=== PATIENT | male | born 1945 | race Caucasian/White ===

== ENCOUNTER 2018-09-23 04:00 | Emergency (ER) | payer BC ==
[2018-09-23] MEDS ORDERED: ALBUTEROL (0.5% CONCENTRATED) 2.5 MG/0.5 ML VIAL.NEB INH ONE (04:12)
[2018-09-23] MEDS ORDERED: IPRATROPIUM/ALBUTEROL (0.5MG/3MG) NEB INH ONE (04:14)
[2018-09-23 04:17] LABS: ABSOLUTE NEUTROPHIL COUNT 2.04; BASO % 0.4 % (0-6); EOS % 9.3 % (0-6); GRAN % 42.1 % (47-80); HEMATOCRIT 42.8 % (42.0-52.0); HEMOGLOBIN 14.5 gm/dl (14.0-18.0); LYMPH % 36.6 % (16-45); MEAN CELL VOLUME 81.8 fl (81-97); MEAN CORPUSCULAR HEMOGLOBIN 27.7 pg (27-33); MEAN CORPUSCULAR HGB CONC 33.9 g/dl (32-36); MEAN PLATELET VOLUME 10.1 fl (7.4-10.4); MONO % 11.6 % (0-9); PLATELET COUNT 160 K/uL (130-400); RED BLOOD COUNT 5.23 M/uL (4.40-5.70); RED CELL DISTRIBUTION WIDTH 14.3 % (11.5-14.5); WHITE BLOOD COUNT W/O DIFF 4.8 K/uL (4.2-12.2)
[2018-09-23 04:29] LABS: BLOOD UREA NITROGEN 20 mg/dL (8-23); CREATININE 1.2 mg/dL (0.7-1.2); EST GLOMERULAR FILTRATION RATE > 60 mL/min
[2018-09-23] MEDS ORDERED: METHYLPREDNISOLONE PF 125MG/VIAL IVP ONE (04:29)
[2018-09-23 04:30] LABS: TOTAL PROTEIN 6.7 g/dL (6.6-8.7)
[2018-09-23 04:32] LABS: GLUCOSE,RANDOM 166 mg/dL (74-109)
[2018-09-23 04:35] LABS: ALB/GLOB RATIO 1.4 (1.1-1.8); ALBUMIN 3.9 g/dL (4.0-5.0); ALKALINE PHOSPHATASE 87 U/L (40-129); ALT/SGPT 14 U/L (<41); AST/SGOT 16 U/L (10.0-50.0)
[2018-09-23] MEDS ORDERED: AZITHROMYCIN 500 MG TABLET PO ONE (05:00)
[2018-09-23] MEDS ORDERED: ALBUTEROL SULFATE (0.083%) 2.5 MG/3 ML NEB INH ONE (05:00)
--- NOTE | 2018-09-23 05:01 | Emergency Department Record ---
History of Present Illness - General Chief Complaint: Shortness of breath Stated Complaint: CHRIS Time Seen by Provider: 09/23/18 04:24 Source: Patient Mode of Arrival: Ambulatory Limitations: No limitations - History of Present Illness Initial Comments: pt has been sick for 4 days. tonight he woke up and felt like he couldnt breathe. he has never had anything like that befor. he has a productive white cough. no co, no fevers MD Complaint: Shortness of breath Onset/Timin -: Days(s) Consistency: Constant Worsens With: Nothing Context: Recent URI Associated Symptoms: Cough, Sputum production Treatments Prior to Arrival: Other Treatment Prior to Arrival Comment:: otc mucinex - Related Data Home Oxygen Therapy: No Home Medications Medication Instructions Recorded Confirmed Last Taken Atorvastatin Calcium 10 mg PO DAILY 09/23/18 09/23/18 Unknown Cyclobenzaprine HCl [Flexeril] 5 mg PO BID 09/23/18 09/23/18 Unknown Hydrocodone/Acetaminophen 1 tab PO DAILY 09/23/18 09/23/18 Unknown [Hydrocodone/Acetaminophen 10mg/325mg] Tamsulosin HCl [Flomax] 0.4 mg PO DAILY 09/23/18 09/23/18 Unknown Previous Rx's Medication Instructions Recorded Albuterol Sulfate [Ventolin Hfa] 1 - 2 puff IH .EVERY 4-6 HOURS PRN 09/23/18 #1 inhaler Azithromycin [Zithromax] 250 mg PO DAILY #4 tab 09/23/18 Prednisone [Prednisone 20Mg] 20 mg PO Q12HR #6 tab 09/23/18 Allergies Allergy/AdvReac Type Severity Reaction Status Date / Time No Known Drug Allergies Allergy Verified 09/23/18 04:06 Travel Screening - Travel/Exposure Within Last 30 Days Have you traveled within the last 30 days?: No - Travel/Exposure Within Last Year Have you traveled outside the [place] in the last year?: No - Additonal Travel Details Have you been exposed to anyone with a communicable illness?: No - Travel Symptoms Symptom Screening: None Review of Systems Reviewed: No additional complaints except as noted below Constitutional: Reports: As per HPI. Denies: Chills, Fever, Malaise, Night sweats, Weakness, Weight change Eyes: Reports: As per HPI. Denies: Eye discharge, Eye pain, Photophobia, Vision change ENT: Reports: As per HPI. Denies: Congestion, Dental pain, Ear pain, Epistaxis, Hearing loss, Throat pain Respiratory: Reports: As per HPI, Cough. Denies: Dyspnea, Hemoptysis, Stridor, Wheezes Cardiovascular: Reports: As per HPI. Denies: Arrhythmia, Chest pain, Dyspnea on exertion, Edema, Murmurs, Orthopnea, Palpitations, Paroxysmal nocturnal dyspnea, Rheumatic Fever, Syncope Endocrine: Reports: As per HPI. Denies: Fatigue, Heat or cold intolerance, Polydipsia, Polyuria Gastrointestinal: Reports: As per HPI. Denies: Abdominal pain, Constipation, Diarrhea, Hematemesis, Hematochezia, Melena, Nausea, Vomiting Genitourinary: Reports: As per HPI. Denies: Dysuria, Frequency, Hematuria, Incontinence, Retention, Testicular pain, Testicular mass, Urgency Musculoskeletal: Reports: As per HPI. Denies: Arthralgia, Back pain, Gout, Joint swelling, Myalgia, Neck pain Skin: Reports: As per HPI. Denies: Bruising, Change in color, Change in hair/nails, Lesions, Pruritus, Rash Neurological: Reports: As per HPI. Denies: Abnormal gait, Confusion, Headache, Numbness, Paresthesias, Seizure, Tingling, Tremors, Vertigo, Weakness Psychiatric: Reports: As per HPI. Denies: Anxiety, Auditory hallucinations, Depression, Homicidal thoughts, Suicidal thoughts, Visual hallucinations Hematological/Lymphatic: Reports: As per HPI. Denies: Anemia, Blood Clots, Easy bleeding, Easy bruising, Swollen glands Past Medical History - SOCIAL HISTORY Smoking Status: Former smoker Alcohol Use: None Drug Use: None - RESPIRATORY Hx Respiratory Disorders: No - CARDIOVASCULAR Hx Cardio Disorders: No - NEURO Hx Neuro Disorders: No - GI Hx GI Disorders: No - Hx Bladder Problem: Yes - ENDOCRINE Hx Endocrine Disorders: No - MUSCULOSKELETAL Hx Musculoskeletal Disorders: Yes Hx Back Injury: Yes - PSYCH Hx Psych Problems: No - HEMATOLOGY/ONCOLOGY Hx Hematology/Oncology Disorders: Yes Hx Cancer: Yes (non-hodkins lymphoma) Hx Chemotherapy: Yes Hx Radiation Therapy: Yes (5 years ago) Family Medical History Any Significant Family History?: No Physical Exam - General General Appearance: Alert, Oriented x3, Cooperative, No acute distress - Head Head exam: Normal inspection - Eye Eye exam: Normal appearance, PERRL, EOMI Pupils: Normal accommodation - ENT ENT exam: Normal exam, Mucous membranes moist, Normal external ear exam, Normal orophraynx, TM's normal bilaterally Ear exam: Normal external inspection. negative: External canal tenderness Nasal Exam: Normal inspection. negative: Discharge, Sinus tenderness Mouth exam: Normal external inspection, Tongue normal Teeth exam: Normal inspection. negative: Dental caries Throat exam: Normal inspection. negative: Tonsillar erythema, Tonsillar exudate - Neck Neck exam: Normal inspection, Full ROM. negative: Tenderness - Respiratory Respiratory exam: Respiratory distress, Wheezes - Cardiovascular Cardiovascular Exam: Regular rate, Normal rhythm, Normal heart sounds - GI/Abdominal GI/Abdominal exam: Soft, Normal bowel sounds. negative: Tenderness - Rectal Rectal exam: Deferred - exam: Deferred - Extremities Extremities exam: Normal inspection, Full ROM, Normal capillary refill. negative: Tenderness - Back Back exam: Reports: Normal inspection, Full ROM. Denies: Muscle spasm, Rash noted, Tenderness - Neurological Neurological exam: Alert, CN II-XII intact, Normal gait, Oriented X3 - Psychiatric Psychiatric exam: Normal affect, Normal mood - Skin Skin exam: Dry, Intact, Normal color, Warm Course Vital Signs 09/23/18 09/23/18 04:05 04:16 Temperature 97.7 F Pulse Rate 80 77 Respiratory 24 18 Rate Blood Pressure 164/86 Pulse Ox 97 96 - Reevaluation(s) Reevaluation #1: 09/23/18 05:05 pt feels much better Medical Decision Making - Lab Data Result diagrams: 09/23/18 04:13 09/23/18 04:13 Lab Results 09/23/18 09/23/18 09/23/18 Range/Units 04:13 04:13 04:29 WBC 4.8 (4.2-12.2) K/uL RBC 5.23 (4.40-5.70) M/uL Hgb 14.5 (14.0-18.0) gm/dl Hct 42.8 (42.0-52.0) % MCV 81.8 (81-97) fl MCH 27.7 (27-33) pg MCHC 33.9 (32-36) g/dl RDW 14.3 (11.5-14.5) % Plt Count 160 (130-400) K/uL MPV 10.1 (7.4-10.4) fl Gran % 42.1 L (47-80) % Lymphocytes % 36.6 (16-45) % Monocytes % 11.6 H (0-9) % Eosinophils % 9.3 H (0-6) % Basophils % 0.4 (0-6) % Absolute Neutrophils 2.04 Sodium 141 (136-145) mmol/L Potassium 4.3 (3.4-4.5) mmol/L Chloride 106 (98-107) mmol/L Carbon Dioxide 26.0 (22-29) mmol/L Anion Gap 9.0 (7-16) BUN 20 (8-23) mg/dL Creatinine 1.2 (0.7-1.2) mg/dL Estimated GFR > 60 mL/min Random Glucose 166 H (74-109) mg/dL Calcium 8.9 (8.8-10.2) mg/dL Total Bilirubin 0.30 (0.2-1.0) mg/dL AST 16 (10.0-50.0) U/L ALT 14 (<41) U/L Alkaline Phosphatase 87 (40-129) U/L NT-Pro-B Natriuret Pep 177.80 H Cancelled (<125) pg/mL Total Protein 6.7 (6.6-8.7) g/dL Albumin 3.9 L (4.0-5.0) g/dL Globulin 2.8 (1.4-4.8) gm/dL Albumin/Globulin Ratio 1.4 (1.1-1.8) Disposition Disposition: Discharge Clinical Impression: Pneumonia Qualifiers: Pneumonia type: due to unspecified organism Laterality: right Lung location: lower lobe of lung Qualified Code(s): J18.1 - Lobar pneumonia, unspecified organism Disposition: Home, Self-Care Condition: (1) Good Instructions: Pneumonia (ED) Additional Instructions: follow up with family doctor. return sooner if worse. Prescriptions: Prednisone [Prednisone 20Mg] 20 mg PO Q12HR #6 tab Albuterol Sulfate [Ventolin Hfa] 1 - 2 puff IH .EVERY 4-6 HOURS PRN #1 inhaler PRN Reason: Difficulty In Breathing Azithromycin [Zithromax] 250 mg PO DAILY #4 tab Quality - Quality Measures Quality Measures: N/A - Blood Pressure Screening Does Patient Have Any of the Following: No Blood Pressure Classification: Pre-Hypertensive BP Reading Systolic Measurement: 164 Diastolic Measurement: 86 Screening for High Blood Pressure: < First Hypertensive BP, F/U Documented > [G8950] First Hypertensive Follow-up Interventions: Follow-up with rescreen GT 1 day and LT 4 weeks.
--- NOTE | 2018-09-24 10:40 | RADIOLOGY REPORT ---
EXAM: CHEST, TWO VIEWS HISTORY: NONPRODUCTIVE COUGH AND SHORTNESS OF BREATH FOR TWO DAYS. TECHNIQUE: Upright PA and lateral views of the chest were obtained. Comparison: None. FINDINGS: The heart is not enlarged and the pulmonary vasculature is nondilated. Small calcified nodules are scattered within the lower lungs consistent with healed granulomatous disease. No lung consolidation, costophrenic angle blunting, or pneumothorax is seen. Old healed fractures of the lateral right fifth and sixth ribs suggested. There are mild degenerative end plate changes scattered throughout the visualized spine and shoulder girdles. IMPRESSION: NO RADIOGRAPHIC EVIDENCE OF ACUTE CARDIOPULMONARY DISEASE. SMALL CALCIFIED NODULES SCATTERED IN THE LOWER LUNGS CONSISTENT WITH HEALED GRANULOMATOUS DISEASE. JOB NUMBER: [id number] [facility]
== END 2018-09-23 05:23 | disposition home or self-care (01) ==
LOC: ER 04:00
DX: J18.1 Lobar pneumonia, unspecified organism (principal); R06.02 Shortness of breath; Z87.891 Personal history of nicotine dependence
CPT/HCPCS: 71046; 80053; 83880; 85025; 94640; 96374; 99284; J2930; J7613

== ENCOUNTER 2019-06-16 12:04 | Emergency (ER) | payer BC ==
--- NOTE | 2019-06-16 12:42 | Emergency Department Record ---
History of Present Illness - General Chief complaint: Male Urogenital Problem Stated complaint: unable to void Time Seen by Provider: 06/16/19 12:40 Source: Patient, RN notes reviewed Mode of Arrival: Ambulatory - History of Present Illness Initial comments: patient has brain tumors times three and he chronic right shoulder and upper thoracic right sided back pain and he says that is from laying on his side in the MRI machine about 4 weeks ago. 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 Patient is getting radiation to his head and he is now trying to recover from that and he came in here because of urinary retention. Zayas was placed and he had 1000 ml of urine in his bladder and that feels better and he now is complaining about his right upper thoracic back pain. Patient was getting radiation at [facility] last treatment to the brain 2 days ago. PMH pulmonary embolus and on lovenox twice a day and in our Ed he had a nose bleed right side controlled with pressure. Reports: Urinary retention - Related Data Sexually active: No Previous Rx's Medication Instructions Recorded Albuterol Sulfate [Ventolin Hfa] 1 - 2 puff IH .EVERY 4-6 HOURS PRN 09/23/18 #1 inhaler Azithromycin [Zithromax] 250 mg PO DAILY #4 tab 09/23/18 Prednisone [Prednisone 20Mg] 20 mg PO Q12HR #6 tab 09/23/18 Allergies Allergy/AdvReac Type Severity Reaction Status Date / Time No Known Drug Allergies Allergy Verified 09/23/18 04:06 Travel/Exposure Screening - Travel/Exposure Within Last 30 Days Have you traveled within the last 30 days?: No - Travel/Exposure Within Last Year Have you traveled outside the [place] in the last year?: No - Additonal Travel/Exposure Details Have you been exposed to anyone with a communicable illness?: No - Travel Symptoms Symptom Screening: None Review of Systems Reviewed: No additional complaints except as noted below Constitutional: Reports: As per HPI. Denies: Chills, Fever, Malaise, Night sweats, Weakness, Weight change Eyes: Reports: As per HPI. Denies: Eye discharge, Eye pain, Photophobia, Vision change ENT: Reports: As per HPI. Denies: Congestion, Dental pain, Ear pain, Epistaxis, Hearing loss, Throat pain Respiratory: Reports: As per HPI. Denies: Cough, Dyspnea, Hemoptysis, Stridor, Wheezes Cardiovascular: Reports: As per HPI. Denies: Arrhythmia, Chest pain, Dyspnea on exertion, Edema, Murmurs, Orthopnea, Palpitations, Paroxysmal nocturnal dyspnea, Rheumatic Fever, Syncope Endocrine: Reports: As per HPI. Denies: Fatigue, Heat or cold intolerance, Polydipsia, Polyuria Gastrointestinal: Reports: As per HPI. Denies: Abdominal pain, Constipation, Diarrhea, Hematemesis, Hematochezia, Melena, Nausea, Vomiting Genitourinary: Reports: As per HPI. Denies: Dysuria, Frequency, Hematuria, Incontinence, Retention, Testicular pain, Testicular mass, Urgency Musculoskeletal: Reports: As per HPI, Back pain (right thoracic pain). Denies: Arthralgia, Gout, Joint swelling, Myalgia, Neck pain Skin: Reports: As per HPI. Denies: Bruising, Change in color, Change in hair/nails, Lesions, Pruritus, Rash Neurological: Reports: As per HPI. Denies: Abnormal gait, Confusion, Headache, Numbness, Paresthesias, Seizure, Tingling, Tremors, Vertigo, Weakness Psychiatric: Reports: As per HPI. Denies: Anxiety, Auditory hallucinations, Depression, Homicidal thoughts, Suicidal thoughts, Visual hallucinations Hematological/Lymphatic: Reports: As per HPI. Denies: Anemia, Blood Clots, Easy bleeding, Easy bruising, Swollen glands Past Medical History - SOCIAL HISTORY Smoking Status: Former smoker - RESPIRATORY Hx Respiratory Disorders: No - CARDIOVASCULAR Hx Cardio Disorders: No - NEURO Hx Neuro Disorders: No - GI Hx GI Disorders: No - Hx Bladder Problem: Yes - ENDOCRINE Hx Endocrine Disorders: No - MUSCULOSKELETAL Hx Musculoskeletal Disorders: Yes Hx Back Injury: Yes - PSYCH Hx Psych Problems: No - HEMATOLOGY/ONCOLOGY Hx Hematology/Oncology Disorders: Yes Hx Cancer: Yes (non-hodkins lymphoma) Hx Chemotherapy: Yes Hx Radiation Therapy: Yes (5 years ago) Family Medical History Any Significant Family History?: No Physical Exam - General General Appearance: Alert, Oriented x3, Cooperative, Moderate distress - Head Head exam: Normal inspection - Eye Eye exam: Normal appearance, PERRL Pupils: Normal accommodation - ENT ENT exam: Normal exam, Mucous membranes moist, Normal external ear exam, Normal orophraynx, TM's normal bilaterally Ear exam: Normal external inspection. negative: External canal tenderness Nasal Exam: Normal inspection. negative: Discharge, Sinus tenderness Mouth exam: Normal external inspection, Tongue normal Teeth exam: Normal inspection. negative: Dental caries Throat exam: Normal inspection. negative: Tonsillar erythema, Tonsillar exudate - Neck Neck exam: Normal inspection, Full ROM. negative: Tenderness - Respiratory Respiratory exam: Normal lung sounds bilaterally. negative: Respiratory distress - Cardiovascular Cardiovascular Exam: Regular rate, Normal rhythm, Normal heart sounds - GI/Abdominal GI/Abdominal exam: Soft, Normal bowel sounds. negative: Tenderness - Rectal Rectal exam: Deferred - exam: Deferred - Extremities Extremities exam: Normal inspection, Full ROM, Normal capillary refill. negative: Tenderness - Back Back exam: Reports: Normal inspection, Full ROM. Denies: Muscle spasm, Rash noted, Tenderness - Neurological Neurological exam: Alert, Normal gait, Oriented X3, Reflexes normal - Psychiatric Psychiatric exam: Normal affect, Normal mood - Skin Skin exam: Dry, Intact, Normal color, Warm Course Vital Signs 06/16/19 12:35 Temperature 37.8 F L Pulse Rate 103 H Respiratory 20 Rate Blood Pressure 122/98 Pulse Ox 100 - Reevaluation(s) Reevaluation #1: discussed case with daughter and she informed me he also has a PE and on lovenox therapy. 06/16/19 16:58 Reevaluation #2: Discussed case with Dr Paiz and will transfer to [facility] For further care. 06/16/19 16:59 Reevaluation #3: Daughter informed me he is living in a pole barn without running water because the pipes are frozen and she is trying to get him into a jail. Daughter Lianne Matias 06/16/19 17:01 Medical Decision Making - Data Complexity MDM Data: Labs Ordered and/or Reviewed (wbc 27,800, urine RBC tntc, no nat and WBC 3-5), X-Ray Ordered and/or Reviewed (CT scan multiple tumors in lungs, liver and kidneys) - Lab Data Result diagrams: 06/16/19 12:55 06/16/19 12:55 Disposition Clinical Impression: Urinary retention, Living accommodation issues Elevated white blood cell count Qualifiers: Leukocytosis type: unspecified Qualified Code(s): D72.829 - Elevated white blo od cell count, unspecified Disposition: Acute Care Hospital Transfer Condition: (2) Stable Forms: Patient Portal Access Time of Disposition: 17:00 Quality - Quality Measures Quality Measures: N/A - Blood Pressure Screening Does Patient Have Any of the Following: No Blood Pressure Classification: Hypertensive Reading Systolic Measurement: 122 Diastolic Measurement: 98 Screening for High Blood Pressure: < First Hypertensive BP, F/U Documented > [G8950] First Hypertensive Follow-up Interventions: Referral to alternative/primary care provider.
[2019-06-16] MEDS ORDERED: HYDROMORPHONE HCL 1 MG/ML SYRINGE IVP ONE (13:01)
[2019-06-16 13:05] LABS: ABSOLUTE NEUTROPHIL COUNT 26.04; HEMOGLOBIN 11.9 gm/dl (14.0-18.0); MEAN CELL VOLUME 77.2 fl (81-97); MEAN CORPUSCULAR HEMOGLOBIN 24.8 pg (27-33); MEAN CORPUSCULAR HGB CONC 32.2 g/dl (32-36); MEAN PLATELET VOLUME 9.8 fl (7.4-10.4); PLATELET COUNT 92 K/uL (130-400); RED BLOOD COUNT 4.79 M/uL (4.40-5.70); RED CELL DISTRIBUTION WIDTH 20.4 % (11.5-14.5)
[2019-06-16] MEDS ORDERED: 0.9 % SODIUM CHLORIDE 1000ML 1,000 ML IV ONE ×2 (13:11→13:13)
[2019-06-16 13:13] LABS: WHITE BLOOD COUNT W/O DIFF 27.8 K/uL (4.2-12.2)
[2019-06-16 13:16] LABS: PLATELET ESTIMATE DECREASED (NORMAL)
[2019-06-16 13:18] LABS: BLOOD UREA NITROGEN 23 mg/dL (8-23)
[2019-06-16 13:19] LABS: EST GLOMERULAR FILTRATION RATE > 60 mL/min; LIPASE 21 U/L (13-60)
[2019-06-16 13:21] LABS: GLUCOSE,RANDOM 229 mg/dL (74-109)
[2019-06-16 13:24] LABS: ALBUMIN 2.7 g/dL (4.0-5.0); ALKALINE PHOSPHATASE 271 U/L (40-129); ALT/SGPT 24 U/L (<41); AST/SGOT 16 U/L (10.0-50.0); BILIRUBIN,DIRECT < 0.2 mg/dL (0-0.3)
[2019-06-16 13:41] LABS: URINE APPEARANCE SL CLOUDY; URINE BILIRUBIN NEGATIVE (NEGATIVE); URINE BLOOD LARGE (NEGATIVE); URINE COLOR YELLOW; URINE KETONE NEGATIVE (NEGATIVE); URINE LEUKOCYTE ESTERASE NEGATIVE (NEGATIVE); URINE NITRITE NEGATIVE (NEGATIVE); URINE UROBILINOGEN 0.2 E.U./dL (0.20 - 1.00)
[2019-06-16 13:49] LABS: URINE BACTERIA NONE SEEN; URINE EPITHELIAL CELLS NONE SEEN (FEW)
--- NOTE | 2019-06-16 15:14 | CT SCAN REPORT ---
EXAMINATION: CT Chest without IV Contrast EXAM DATE: 06/16/2019 2:30 PM TECHNIQUE: Standard protocol CT images of the chest were performed without intravenous contrast. Lac k of intravenous contrast does limit assessment of the vascular structures and soft tissues. Coronal and sagittal images were reconstructed. INDICATION: right posterior thoracic pain COMPARISON: Chest radiograph 09/23/2018 ENCOUNTER: Not applicable CHEST FINDINGS: Base of Neck & Axillae: There is no adenopathy. Mediastinum & Teresa: Multiple enlarged aorticopulmonary lymph nodes are seen measuring up to 2.1 cm in short axis and approximately 3.7 cm in long axis. Accurate measurements are limited due to lack of i ntravenous contrast. An enlarged paraesophageal lymph node at the level of the hieu measures up to 1.4 cm in short axis. Cardiovascular: The heart has a normal size. There is no pericardial effusion. Diffuse coronary arter y calcifications are identified which can reflect coronary artery disease. The thoracic aorta and ma in pulmonary artery have a normal caliber. Tracheobronchial Structures: There is no bronchial wall thickening or bronchiectasis. Lung Parenchyma: Multiple small calcified granulomas are seen scattered throughout the lung parenchym a. Multiple noncalcified pulmonary nodules are seen scattered throughout the lung. The largest in the ri ght upper lobe measures 2.1 x 1.6 cm (3:42). A noncalcified pleural-based 2.4 x 0.9 cm nodule at the basal superior left lower lobe (3:38) is identified. A noncalcified 1.9 x 1.5 cm pleural-based nodule at the basal medial left lower lobe (3:69) is noted. No segmental consolidation to indicate an airspace disease process. Pleural Space: A small left pleural effusion is present. Upper Abdomen: A large heterogenous left renal mass measuring up to 13.2 x 8.4 cm in the transverse a nd AP dimensions is partially imaged on the exam. Extension into the splenorenal varices is suspected which appear enlarged measuring up to 5.2 x 4.2 cm in the axial plane. Left periaortic retroperitone al adenopathy is present and incompletely imaged on the exam. Multiple hypoattenuating nodules are noted scattered throughout the liver. There is Chest Wall & Musculoskeletal: No suspicious bone lesions. Multilevel degenerative changes of the spin e are present. 3-D Imaging at an Independent Workstation: Not performed. Assessment of the soft tissues and vascular structures is overall limited on noncontrast imaging, The orange significant findings protocol was initiated at 06/16/2019 3:08 PM. IMPRESSION: 1. Multiple noncalcified pulmonary nodules as detailed above are concerning for metastasis in this pa tient with a large left renal mass that is partially imaged on the exam. The largest nodule on the ri ght measures up to 2.1 x 1.6 cm in the largest nodule on the left measures up to 2.4 x 0.9 cm. 2. Aorticopulmonary and paraesophageal adenopathy is highly concerning for metastasis. 3. Small left pleural effusion. 4. Large approximately 13.2 x 8.4 cm solid left renal mass is incompletely imaged and evaluated on th e exam and is consistent with neoplasm till proven otherwise. Most likely renal cell carcinoma. Assoc iated left retroperitoneal adenopathy is seen. A 5.2 x 4.2 cm solid mass of the left upper quadrant m ay reflect extension into the splenorenal vein versus left adrenal metastasis. Dedicated CT abdomen a nd pelvis with contrast is recommended for evaluation. Urology consultation recommended. 5. Multifocal subcentimeter hypoattenuating lesions scattered throughout the liver are indeterminate on this noncontrast study. Metastasis related to neoplasm not excluded. Dictated by: Bar Camacho DO on 06/16/2019 2:57 PM. .
[2019-06-16] MEDS ORDERED: CEFTRIAXONE SODIUM 1 GM in 0.9 % SODIUM CHLORIDE 100ML 100 ML IVPB ONE (16:08)
== END 2019-06-16 17:46 | disposition short-term general hospital (02) ==
LOC: ER 12:04
DX: R33.9 Retention of urine, unspecified (principal); R91.8 Other nonspecific abnormal finding of lung field; N28.89 Other specified disorders of kidney and ureter; D72.89 Other specified disorders of white blood cells; M54.6 Pain in thoracic spine; C85.90 Non-Hodgkin lymphoma, unspecified, unspecified site; Z87.891 Personal history of nicotine dependence; Z59.1 Inadequate housing; Z86.711 Personal history of pulmonary embolism; Z79.01 Long term (current) use of anticoagulants
CPT/HCPCS: 36416; 71250; 80048; 80076; 81001; 82948; 83690; 85027; 96365; 96375; 99285; J1170